=== PATIENT | female | born 1970 | race Caucasian/White ===

== ENCOUNTER 2023-05-02 05:53 | Day surgery (SDC) | payer OTHER, SELFPAY ==
[2023-04-24 13:17] VITALS: BMI 20.6
[2023-04-24 14:13] LABS: % Basophils 0.7 % (0-2); % Eosinophils 1.2 % (0-6); % Immature Granulocytes 0.3 % (0-0.5); % Lymphocytes 32.6 % (20.5-51.1); % Monocytes 7.7 % (1.7-9.3); % Neutrophils 57.5 % (42.2-75.2); Absolute Basophils 0.1 10^3/uL (0-0.2); Absolute Eosinophils 0.1 10^3/uL (0-0.7); Absolute Lymphocytes 2.2 10^3/uL (1.2-3.4); Absolute Monocytes 0.5 10^3/uL (0.1-0.6); Absolute Neutrophils 3.9 10^3/uL (1.4-6.5); Hemoglobin 13.3 g/dL (12.0-16.0); Mean Corp Hgb Conc. 33.3 g/dL (33.0-37.0); Mean Corpuscular Hgb 31.4 pg (27.0-31.0); Mean Corpuscular Volume 94.6 fL (81.0-99.0); Mean Platelet Volume 8.9 fL (7.4-10.4); Nucleated Red Blood Cells % 0 %; Platelet Count 278 10^3/uL (130-400); Red Blood Cell Count 4.23 10^6/uL (4.20-5.40); Red Cell Dist. Width 12.2 % (11.5-14.5); White Blood Cell Count 6.7 10^3/uL (4.8-10.8)
[2023-04-24 14:31] LABS: ALT (SGPT) 21 U/L (0-35); AST (SGOT) 27 U/L (14-36); Albumin 4.6 g/dl (3.5-5.0); Alkaline Phosphatase 61 U/L (38-126); Blood Urea Nitrogen 14 mg/dl (7-17); Calcium 10.5 mg/dl (8.4-10.2); Carbon Dioxide 30 mmol/L (22-30); Chloride 102 mmol/L (98-107); Estimated Creatinine Clearance 79 ml/min; Glucose 108 mg/dl (70-99); Potassium 4.4 mmol/L (3.5-5.1); Sodium 137 mmol/L (135-145); Total Bilirubin 0.6 mg/dl (0.2-1.3); Total Protein 7.7 g/dl (6.3-8.2); eGFR > 60.00
[2023-05-02] VITALS (32 sets, daily range): BP systolic 95–117; BP diastolic 64–77; BMI 20.8
[2023-05-02 06:55] LABS: Urine Albumin Trace (Neg - Trace); Urine Bilirubin Negative (Negative); Urine Character Slightly Cloudy (Clear); Urine Color Yellow; Urine Glucose Negative (Negative); Urine Ketone Negative (Negative); Urine Leukocyte 2+ (Negative); Urine Nitrite Negative (Negative); Urine Occult Blood 4+ (Negative); Urine Specific Gravity 1.025 (<1.030); Urine Urobilinogen Negative (Neg - 1+)
[2023-05-02 07:02] LABS: HCG, Urine Qualitative Screen Negative
--- NOTE | 2023-05-02 07:04 | PTCARENOTE ---
Pt here for a PVI. Pt arrived stating she feels like she has a 'UTI'. Urine specimen sent for UA and urine HCG. UA resulted positive for UTI. Dr Hoang made aware and given results. Dr Avila also made aware. Will continue to monitor.
[2023-05-02 07:50] LABS: Urine Bacteria Few (Negative); Urine White Cell 16-20 /HPF (0-5)
[2023-05-02 08:30] LABS: ACT-LR - POC 393 Seconds (116-155)
[2023-05-02 08:50] LABS: ACT-LR - POC 326 Seconds (116-155)
[2023-05-02 09:11] LABS: ACT-LR - POC 398 Seconds (116-155)
--- NOTE | 2023-05-02 10:02 | ITS.CL.ABL ---
Coverage Specialist Rn - Ablation
Ablation
Procedure Report:
AFIB ablation:
Ms. Quiroga is a very pleasant 53 yr old woman with medical history significant for symptomatic paroxysmal atrial fibrillation and h/o wide complex tachycardia who is here in the EP lab for atrial fibrillation ablation
Date of Procedure:
05/02/2023
Indications:
Symptomatic atrial fibrillation
Pre-Operative Diagnosis:
Paroxysmal Atrial fibrillation
Post-Operative Diagnosis:
Paroxysmal Atrial fibrillation
Procedure Performed:
Atrial fibrillation ablation with wide area circumferential ablation (WACA) approach for pulmonary vein isolation
Performing Physician:
Frieda Hoang MD
Assistants:
EP staff
Anesthesia:
See anesthesia records
Detailed Description of the Procedure:
Written informed consent was obtained from the patient after a full explanation of the risks and benefits of the procedure including the risks of sedation and anesthesia.
The patient was brought to the electrophysiology laboratory in stable condition in fasting state. Continuous electrocardiographic and hemodynamic monitoring was initiated.
The initial rhythm was normal sinus rhythm.
The procedure site was meticulously prepared with surgical scrub and allowed to dry with no pooling. Sterile draping was applied to cover the procedure site. The image intensifier was draped with sterile bag and positioned over the patient. After
infusion of local anesthetic, vascular access was obtained under ultrasound guidance and sheaths were placed over guide wire as detailed below.
Sheath and Catheter Placement:
In the right femoral vein, an 8-Yemeni sheath was placed for use during the ablation procedure. A second 9-Fr sheath was placed for use during intracardiac echo procedure.
The sheaths were upgraded as needed during the case. Intracardiac catheters were positioned using direct fluoroscopic guidance.� ICE catheter was placed in RA. The following catheters / sheaths were placed
Sheaths:
��������������� Agilis sheath in right femoral vein upgraded from 8Fr in right femoral vein
��������������� 9Fr in right femoral vein
��������������� 7Fr in right femoral vein
Catheters:
������������� Biosense White Thermacool STSF bidirectional (D/F) - at locations of HRA, RV, LA and LV.
������������� Pentaray catheter � at locations of RA and LA
������������� ICE catheter - at locations of RA, SVC, and RV.
������������� Bard Decapolar catheter in RA, CS and RV
Intracardiac ECHO:
An 8-Yemeni AcuNav intracardiac ECHO (ICE) probe was advanced through the 9-Yemeni sheath in the femoral vein into the right atrium under fluoroscopic and ICE ultrasound image guidance and a baseline ECHO study was performed. The left atrial size
was normal. There was trace tricuspid regurgitation. The aortic valve was grossly normal. There was normal left ventricular size and function. There was a trace pericardial effusion. The KATIA has normal velocities noted on Doppler. All the four veins
were identified and good flow noted.
During the procedure, ICE was used for monitoring of complications, guidance of trans-septal puncture, monitor the catheter position and tracking ablation lesions. No change in the pericardial space noted throughout the procedure.
Trans-septal Puncture:
Heparin was initiated and infused to maintain appropriate ACT.
A J-tipped guidewire was advanced through the 8-Yemeni sheath in the right femoral vein into the superior vena cava under fluoroscopic and ICE guidance. The 8-Yemeni sheath was exchanged for an Agilis sheath which was advanced into the superior vena
cava. A BRK needle was advanced until the tip was slightly behind the tip of the dilator inside the Agilis. The apparatus was withdrawn until it was in contact with the fossa ovalis. The position was adjusted based on fluoroscopy and ultrasound
images from ICE. Under fluoroscopic, hemodynamic and ICE ultrasound guidance, left atrium was cannulated by advancing the needle. Once atrial septum was cannulated, the needle was pulled back and a BMW guide wire was advanced through the needle into
the left atrium. The guide wire was advanced into the left superior pulmonary vein. Both the sheath and the dilator was advanced into the left atrium. The dilator with the needle was withdrawn. Blood was aspirated from the Agilis sheath and arterial
blood confirmed. The sheath was flushed. Saline injection noted into the left atrium on ICE. The pressure waveform was checked ad LA pressure measured. The penta-ray catheter was advanced in the Agilis sheath into the left pulmonary vein.
The 3-D mapping was done and then the penta-ray was switched to ablation catheter and back to penta-ray as needed.
3D Electroanatomic Mapping:
Using the Pentaray catheter advanced through Agilis sheath into the left atrium, an electroanatomic map (EAM) of the left atrium was created using [employer] mapping system. The map was used for localization of catheter position and
tacking of ablation lesions. The EAM of the left atrium showed 3 pulmonary veins (Left sided common and 2 right sided) with all electrically connected to the body the LA. It showed no significant scar on the posterior wall of the LA. The LA was
normal in size.
Following the EAM, preparations were made for ablation.
Phrenic nerve stimulation attempt:
The right sided pulmonary veins were identified and the anterior antrum and the deep anterior locations of the PVs were check with high output stimulation that showed no phrenic nerve capture in any of the potential ablation areas. The whole of the
anterior wall was mapped and the deep veins were also tested and once no sign of phrenic capture noted, a design line was created through the areas of tested antral myocardium for ablation lesions.
Ablation:
Pulmonary vein Isolation:
Radiofrequency ablation was performed using an open irrigation, force-sensing 3.5mm radiofrequency ablation catheter (Thermocool STSF) by completing the circumferential lesions around the left and right pulmonary veins achieving pulmonary vein
isolation.
All the ablation lesions were guided by the [facility] SURPOINT module with the posterior lesions were limited to 45 larry for SURPOINT lesion index goal of 400 and anterior wall lesions were limited to SURPOINT index goal of 450.
The esophagus was noted to be on the right side of the LA near the PV antra based on the locations of the esophageal temperature probe. Ablation was stopped for any temperature increase of 0.1 degree C. Max esophageal temperature was 37.3� (baseline
35.4)
EP study / Confirmation of the PVI and bidirectional block:
Following achievement of entrance block at the pulmonary veins, pacing from the pentaray catheter in each of the four veins at 10 milliamps for 2 milliseconds showed entrance and exit block. All PVI were rechecked at the end of the case and remained
isolated with dissociated and local capture with pacing. Entrance and exit block were demonstrated in all veins.
The LA was mapped with Carto EAM in sinus rhythm confirming the line of block at the ablation lesions lines.
Sinus Node Function: The sinus node functions are within acceptable normal range.
The AV praful functions are deemed within normal range.
Arrhythmia Induction:
Programmed stimulation including single, double and triple extrastimuli were delivered from the RVa / RVOT. The RV was paced as per MUSTT protocol with no arrhythmia induced at drive train of 600 and then at 400 msec with S1, S2 and S3. �There was
non-sustained VT noted with aggressive measures.
No sustained arrhythmia was inducible.
Procedure End
ICE study was done again that showed no epicardial accumulation. No complications noted.
Following the completion of the EP study, catheters were removed. Protamine 50 mg was given at the end of the procedure and ACT was checked repeatedly. The sheaths were removed and hemostasis achieved with Vasccade x 3 �and manual compression after
acceptable ACT is achieved.
Left atrial Pressure:
Pre-Procedure: Mean LA pressure was 10mmHg
Post-Procedure: Mean LA pressure was 12mmHg
Post-Procedure: Mean RA pressure was 7mmHg
Estimated Blood loss:
<10 cc
Specimens Removed:
None.
Implants / Devices:
None
Urine output:
None
Packs / Drains/ Tubes:
None
Instrument / Sponge Count Correct:
Yes
Complications of the Procedure:
None
Condition of Patient at Time of Transfer:
Hemodynamically stable with no neurological or vascular compromise.
Summary:
Successful atrial fibrillation ablation with circumferential bidirectional line of block at pulmonary vein antra (Pulmonary vein isolation)
EPS with non-sustained VT noted.
[2023-05-02] MEDS: STERILE WATER FOR INJECTION 10 ML IV (10:49)
[2023-05-02] MEDS: ROCEPHIN 1000 MG IV (10:49)
--- NOTE | 2023-05-02 12:29 | W.PN.UPDATE ---
Update Note
Progress Note Update
53 yo WF s/p PVI (same day). Pre procedure, she c/o dysuria and UA was sent, it did show WBC/Blood and she was treated post with IV Rocephin 1G x 1. She denies cp, sob, selin diet, voiding with less dysuria post IV abx, amb w/o dizziness. R fem site
c/d/i, soft. EKG SR. She will continue OAC Eliquis dose at 4pm at home. She will continue diltiazem and will add PPI for 2 weeks. Activity restrictions reviewed. She has f/u apt 2 weeks with [employer]. SHe is for d/c home after 1230p.
Ms. Quiroga is a very pleasant 53 yr old woman with medical history significant for symptomatic paroxysmal atrial fibrillation and h/o wide complex tachycardia who is here in the EP lab for atrial fibrillation ablation
Date of Procedure:
05/02/2023
Procedure Performed:
Atrial fibrillation ablation with wide area circumferential ablation (WACA) approach for pulmonary vein isolation
== END 2023-05-02 12:30 | disposition home or self-care (01) ==
LOC: CATH 05:53
PROVIDERS: ATTENDING PHYSICIAN Internal Medicine Cardiovascular Disease; FAMILY PHYSICIAN Family Medicine; OTHER PHYSICIAN Internal Medicine Cardiovascular Disease
DX: I48.0 Paroxysmal atrial fibrillation (principal); Z79.01 Long term (current) use of anticoagulants; I47.29 Other ventricular tachycardia
CPT/HCPCS: C1769; C1894; C1730; C1732; C1766; C1892; C1759; 36415; 76937; 80053; 81003; 81015; 81025; 85025; 85347; 86850; 86900; 86901; 87086; 87088; 87186; 93005; 93656

== ENCOUNTER 2023-05-06 12:10 | Emergency (ER) | payer OTHER, SELFPAY ==
[2023-05-06 12:12] VITALS: BP 139/90
[2023-05-06 12:21] VITALS: BP 113/84
[2023-05-06 12:24] VITALS: BMI 21.6
[2023-05-06 12:45] LABS: % Basophils 0.7 % (0-2); % Eosinophils 1.6 % (0-6); % Immature Granulocytes 0.3 % (0-0.5); % Lymphocytes 27.9 % (20.5-51.1); % Monocytes 9.1 % (1.7-9.3); % Neutrophils 60.4 % (42.2-75.2); Absolute Basophils 0.1 10^3/uL (0-0.2); Absolute Eosinophils 0.1 10^3/uL (0-0.7); Absolute Monocytes 0.6 10^3/uL (0.1-0.6); Absolute Neutrophils 4.3 10^3/uL (1.4-6.5); Hematocrit 44.3 % (37.0-47.0); Hemoglobin 14.5 g/dL (12.0-16.0); Mean Corp Hgb Conc. 32.7 g/dL (33.0-37.0); Mean Corpuscular Hgb 31.3 pg (27.0-31.0); Mean Corpuscular Volume 95.5 fL (81.0-99.0); Nucleated Red Blood Cells % 0 %; Platelet Count 279 10^3/uL (130-400); Red Blood Cell Count 4.64 10^6/uL (4.20-5.40); Red Cell Dist. Width 12.1 % (11.5-14.5); White Blood Cell Count 7.1 10^3/uL (4.8-10.8)
--- NOTE | 2023-05-06 12:45 | ED.GENMED ---
History of Present Illness
General
Chief Complaint: Heart Rate Problem
Time Seen by Provider: 05/06/23 12:21
Travel History
Have you had any contact with someone who has COVID-19?: No
Do you have any symptoms of coronavirus? Fever > 100 degrees, chills, cough, shortness of breath, sore throat, loss of taste or smell, muscle aches, or headache?: No
History of Present Illness
History of Present Illness:
53-year-old female with history of A-fib on Eliquis presents to the emergency department for evaluation of palpitations and fast heart rates ongoing for the past day, she underwent an ablation for A-fib 4 days ago and had been doing well up until
symptoms began yesterday. She states she feels 'heavy heartbeats' that worsen whenever she exerts herself. Noted that during toothbrushing today her heart rate it was in the 130s. Apple watch has not indicated to her that she has been in A-fib.
Denies any chest pain or shortness of breath. Has been compliant with her blood thinners. No associated fevers, chills, sweats, coughing, nausea, or vomiting.
Past History
Past History
ED Past Medical History: GERD, Psychiatric (Anxiety) and Other ( pancreatitis, MVP, IBS, UTI,)
ED Past Surgical History: Cholecystectomy, and Other (Breast augmentation)
Patient has exhibited threatening behavior?: No
Social History
Tobacco: Former smoker
Alcohol: None
Drug: None
Personal: Single
Living: with family
Employment: Employed
Family History
Family History: Hypertension
Review of Systems
Review of Systems
Allergies reviewed?: Yes
All Other Systems: ROS reviewed and negative except as documented in HPI and ROS
Phy Exam
Physical Exam
Physical Exam:
GEN: Well appearing, NAD, WDWN
HEENT: Oral mucosa moist, no scleral icterus
Cardiac: Minimally tachycardic, no murmurs or rubs
Lung: No respiratory distress, no tachypnea, lungs clear to auscultation bilaterally
MSK: No gross deformity or injuries
Skin: Good color, no pallor or jaundice, no rashes
Neuro: AO x3, moves all extremities freely
Psych: Calm, cooperative
Course
Orders/Labs/Results
Orders:
Orders
05/06/23 12:14
Electrocardiogram (*1) Urgent
Reason for Study: Bradycardia / Tachycardia
EKG- Treatment ONCE
05/06/23 12:37
CMP [Comprehensive Metabolic Panel] Urgent
Complete Blood Count/With Diff Urgent
05/06/23 12:42
0.9% Sodium Chloride 1000 ml [Nss] 1,000 ml IV BOLUS
05/06/23 12:48
Echo 2D MMode Color/Doppler Urgent
Reason for Study: ORDONEZ, recent ablation
05/06/23 14:50
Orthostatic VS- Treatment ONCE
Abnormal Lab Results
05/06/23
12:37
MCH 31.3 H pg
(27.0-31.0)
MCHC 32.7 L g/dL
(33.0-37.0)
Sodium 134 L mmol/L
(135-145)
Glucose 103 H mg/dl
(70-99)
Calcium 10.6 H mg/dl
(8.4-10.2)
05/06/23 12:37
05/06/23 12:37
Vital Signs
Initial and Last Documented VS:
Initial Vital Signs
Temp Pulse Resp BP Pulse Ox
98.0 F 138 16 139/90 98
05/06/23 12:12 05/06/23 12:12 05/06/23 12:12 05/06/23 12:12 05/06/23 12:12
Last Documented Vital Signs
Temp Pulse Resp BP Pulse Ox
98.0 F 85 19 100/76 90
05/06/23 12:12 05/06/23 14:30 05/06/23 14:30 05/06/23 14:00 05/06/23 14:15
MDM/Problems Addressed
MDM/Problems Addressed:
Overall workup reassuring. Unclear as to why the patient has an appropriate periods of tachycardia although this resolved with IV fluids in emergency department. Echocardiogram is unremarkable. She has no chest pain to suggest acute pericarditis.
Encouraged her to follow-up as an outpatient with cardiology
Comment
Comment:
EKG independently interpreted by me shows a sinus tachycardia at a rate of [address] changes concerning for ischemia, QTc of 436
*Critical Care Note
Total Time (30-74mins, 75-104mins- exclusive of procedures): Not Applicable
ED Attending Note
-
Portions of this chart may have been created with voice recognition software.� Occasional wrong word or��sound alike� substitutions may have occurred due to the inherent limitations of voice recognition software.
Discharge Plan
Departure
Patient Disposition: Home (Routine Discharge)
Date of Disposition: 05/06/23
Time of Disposition: 14:54
Patient with high blood pressure during this ER visit?: No
Discharge Problem:
Sinus tachycardia
Instructions: Tachycardia (DC)
Prescriptions:
No Action
alprazolam 1 MG tablet
0.5 mg PO BIDPRN PRN (Reason: anxiety)
Patient Comments:
[place] PDMP: Filled #60 tablets of alprazolam 1mg on 03/24/23
diltiazem HCl [Tiadylt ER] 240 mg capsule,extended release 24 hr
240 mg PO DAILY
Eliquis 5 mg tablet
5 mg PO BID
Referrals:
Ramon Girard MD [Family Provider] -
Activity Restrictions/Additional Instructions:
At this point the cause of your fast heart rate is not clear however it did improve in the emergency department
Please call your postie tomorrow if symptoms recur
Your echocardiogram showed no evidence of fluid around the heart
Interventions
Interventions:
*Risk Screen - Suicide Last Done: 05/06/23 12:24
*General Assessment Last Done: 05/06/23 12:24
*Neglect/Abuse Screening Last Done: 05/06/23 12:24
ED- Fall Risk Assessment Last Done: 05/06/23 13:02
*ED COVID-19 Vaccine History Last Done: 05/06/23 12:12
ED- Cardiac Assessment Last Done: 05/06/23 12:24
ED- Pulmonary Assessment Last Done: 05/06/23 12:24
[2023-05-06 12:59] LABS: ALT (SGPT) 29 U/L (0-35); AST (SGOT) 30 U/L (14-36); Albumin 4.5 g/dl (3.5-5.0); Alkaline Phosphatase 62 U/L (38-126); Blood Urea Nitrogen 17 mg/dl (7-17); Calcium 10.6 mg/dl (8.4-10.2); Carbon Dioxide 28 mmol/L (22-30); Chloride 101 mmol/L (98-107); Estimated Creatinine Clearance 79 ml/min; Glucose 103 mg/dl (70-99); Potassium 4.3 mmol/L (3.5-5.1); Sodium 134 mmol/L (135-145); Total Bilirubin 0.6 mg/dl (0.2-1.3); Total Protein 7.7 g/dl (6.3-8.2); eGFR > 60.00
[2023-05-06] MEDS: NSS 1000 IV (13:00)
[2023-05-06 13:39] VITALS: BP 103/72
[2023-05-06 14:00] VITALS: BP 100/76
[2023-05-06 14:50] VITALS: BP 104/71; BP 107/71; BP 90/79; PULSE 84; PULSE 85; PULSE 95
== END 2023-05-06 15:11 | disposition home or self-care (01) ==
LOC: EMR 12:10
PROVIDERS: Physician Assistant; EMERGENCY PHYSICIAN Emergency Medicine; FAMILY PHYSICIAN Family Medicine
DX: R00.0 Tachycardia, unspecified (principal); I48.91 Unspecified atrial fibrillation; K21.9 Gastro-esophageal reflux disease without esophagitis; F41.9 Anxiety disorder, unspecified; I34.1 Nonrheumatic mitral (valve) prolapse; K58.9 Irritable bowel syndrome, unspecified; Z87.891 Personal history of nicotine dependence; Z82.49 Family history of ischemic heart disease and other diseases of the circulatory system
CPT/HCPCS: 99284; 80053; 85025; 93005; 93306

== ENCOUNTER → 2024-04-13 14:02 | Outpatient (REF) | payer OTHER, SELFPAY | LOC: WDC 14:02 | PROVIDERS: ATTENDING PHYSICIAN Nurse Practitioner Family; FAMILY PHYSICIAN Family Medicine | DX: Z12.31 Encounter for screening mammogram for malignant neoplasm of breast (principal) | CPT/HCPCS: 77063; 77067 ==

== ENCOUNTER → 2025-02-17 12:51 | Outpatient (REF) | payer OTHER, SELFPAY | LOC: HWRCS 12:51 | PROVIDERS: ATTENDING PHYSICIAN Internal Medicine Cardiovascular Disease; FAMILY PHYSICIAN Family Medicine | DX: I47.29 Other ventricular tachycardia (principal); I34.0 Nonrheumatic mitral (valve) insufficiency | CPT/HCPCS: 93306 ==